=== PATIENT | female | born 1965 | race Caucasian/White ===

== ENCOUNTER 2016-11-05 16:18 | Inpatient (IN) ==
[2016-11-05 17:06] LABS: MANUAL DIFF NEEDED? NO
[2016-11-05 17:09] LABS: BASO% 0.4 % (0.0-0.8); EOS# 0.11 X1000 (0.0-0.7); EOS% 0.6 % (0.0-10.0); HEMATOCRIT 45.3 % (37.0-47.0); HEMOGLOBIN 16.4 g/dL (12.0-16.0); IMM GRAN# 0.06 X1000 (0.0-0.04); IMM GRAN% 0.3 % (0.0-0.5); LYMPH# 2.05 X1000 (1.2-3.4); LYMPH% 11.8 % (20.5-51.1); MCH 34.8 PG (27-31); MCHC 36.2 g/dL (33-37); MCV 96.2 FL (81-99); MONO# 1.14 X1000 (0.11-0.59); MONO% 6.6 % (1.7-9.3); MPV 9.8 FL (7.4-10.4); NEUT% 80.3 % (42.2-75.2); PLT 295 X1000 (130-400); RBC 4.71 XMIL (4.2-5.4)
[2016-11-05 17:10] LABS: URINE CULTURE NEEDED? NO; URINE MICRO REVIEW NEEDED? NO; URINE SOURCE CLEAN CATCH
[2016-11-05 17:12] LABS: BILIRUBIN URINE NEGATIVE (NEGATIVE); BLOOD URINE MODERATE (NEGATIVE); COLOR YELLOW; GLUCOSE URINE NEGATIVE (NEGATIVE); LEUKOCYTES URINE NEGATIVE (NEGATIVE); NITRITE URINE NEGATIVE (NEGATIVE); PH URINE 6.5; PROTEIN URINE 50 mg/dL (NEGATIVE); SP GRAVITY URINE 1.019; TURBIDITY URINE HAZY (CLEAR); UR EPITHELIAL CELLS >10 /HPF (<10); URINE BACTERIA NEGATIVE /HPF; URINE WBC <10 /HPF (<10); UROBILINOGEN URINE 2 mg/dL (NORMAL)
[2016-11-05 17:46] LABS: CK PROFILE 9445 U/L (24-173)
[2016-11-05 17:51] LABS: AGAP 10; ALBUMIN 3.7 g/dL (3.5-5.0); ALKALINE PHOSPHATASE 51 U/L (32-104); BUN 16 mg/dL (8-22); CALCIUM 8.9 mg/dL (8.8-10.2); CHLORIDE 77 mmol/L (98-107); COSMO 279; GOT 262 U/L (10-30); GPT 103 U/L (10-36); LDH 584 U/L (135-214); RA TEST 12 IU/mL (0-14); SODIUM 137 mmol/L (136-145); TCO2 50 mmol/L (25-35); TOTAL BILIRUBIN 0.75 mg/dL (0.20-1.00); TOTAL PROTEIN 6.3 g/dL (6.3-8.3)
[2016-11-05 17:54] LABS: POTASSIUM 1.4 mmol/L (3.5-5.1)
--- NOTE | 2016-11-05 17:58 | Diag Imaging Result Doc PS360 ---
EXAM: CHEST-2 VIEWS - 11/05/2016 HISTORY: chest pain TECHNIQUE: Chest two views COMPARISON: None. FINDINGS: Heart size is normal. 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 There is no consolidation, vascular congestion, pleural effusion, or pneumothorax identified. IMPRESSION: No evidence of acute disease. Electronically signed by Moe Del Valle 11/05/2016 5:56 PM
[2016-11-05] MEDS ORDERED: NS + KCL 40 MEQ 1,000 ML IV SCH ×2 (18:00→19:39)
[2016-11-05] MEDS ORDERED: POTASSIUM CHLORIDE 20% LIQUID PO ONE (18:00)
--- NOTE | 2016-11-05 18:04 | PROVIDER DOCUMENTATION ---
This chart was entered by Magalie Guo Scribe, acting as scribe for Deacon Lawson MD. HPI-Musculoskeletal Pain/Inj <Guillaume Sexton - Last Filed: 11/05/16 18:16> - GENERAL Source: patient - HX OF PRESENT ILLNESS-MUSKULOSKELTAL Quality of Pain: reports: cramping Severity in ED: mild Onset/Duration: other (two weeks) Timing: still present Modifying Factors: improves with: nothing Any recent injury?: No Locality of Occurance: Home Similar Symptoms Previously?: Yes Recently seen or treated by another doctor?: Yes - FALL INJURY Pain Radiation: reports: shoulder(s) Symptoms prior to fall:: reports: none <Deacon Lawson - Last Filed: 11/05/16 22:07> - GENERAL Chief Complaint: Abnormal Lab[s] Stated Complaint: ABNORMAL LAB Time Seen by Provider: 11/05/16 16:32 - HX OF PRESENT ILLNESS-MUSKULOSKELTAL Nature of Presenting Problem: Pt is a 51 year old female who came to the ED with a cc of muscular pain in both of her shoulders for two weeks. Pt was recently seen initially at [facility] and was referred to [facility]. She had no workup there. She went to [facility] last and had labs drawn. She was called today with markedly elevated CK level. They sent her to the ED because of her markedly elevated CK levels. She has no history of trauma. She has no repetative motion injury. She does not exercise. (Magalie Guo) Pt is a 51 year old female who came to the ED with a cc of muscular pain in both of her shoulders for two weeks. Pt was recently seen initially at [facility] and was referred to [facility]. She had no workup there. She went to [facility] last and had labs drawn. She was called today with markedly elevated CK level. They sent her to the ED because of her markedly elevated CK levels. She has no history of trauma. She has no repetative motion injury. She does not exercise. (Deacon Lawson) Review of Systems - Adult - REVIEW OF SYSTEMS - ADULT Constitutional: denies: fever <Guillaume Sexton - Last Filed: 11/05/16 18:16> - REVIEW OF SYSTEMS - ADULT Constitutional: denies: chills, fever Eyes: reports: no symptoms reported Ears, Nose, Mouth & Throat: denies: ear pain, loose teeth Cardiovascular: reports: no symptoms reported Respiratory: denies: cough, shortness of breath Gastrointestinal: denies: diarrhea, nausea, vomiting Genitourinary: reports: no symptoms reported Musculoskeletal: reports: muscle aches. denies: joint pain, neck pain Integumentary: reports: no symptoms reported Neurological: reports: no symptoms reported Psychiatric: reports: no symptoms reported Endocrine: reports: no symptoms reported Hematologic/Lymphatic: reports: no symptoms reported Allergic/Immunologic: reports: no symptoms reported All Other Systems: Reviewed and Negative <Deacon Lawson - Last Filed: 11/05/16 22:07> Past History - Adult - PAST MEDICAL HISTORY-ADULT Review of Records: reports: Old Records Reviewed, Nursing Assessment Review, Medications Reviewed, Social history reviewed & non-contributory. <Guillaume Sexton - Last Filed: 11/05/16 18:16> - PAST MEDICAL HISTORY-ADULT Review of Records: reports: Old Records Reviewed, Nursing Assessment Review Major Childhood Illnesses: reports: denies history Cardiovascular: reports: HTN Respiratory: reports: denies history Gastrointestinal: reports: denies history Obstetrical/Gynecological: reports: denies history Genitourinary: reports: denies history Musculoskeletal: reports: denies history Neurological: reports: denies history Endocrine/Immune: reports: denies history Other Conditions: reports: denies history - PRIOR SURGERIES/PROCEDURES Surgical/Procedure History: reports: appendectomy, cholecystectomy - IMMUNIZATION STATUS Childhood Immunizations: See Nurse Assessment Flu Vaccine: See Nurse Assessment - FAMILY HISTORY Family History: reviewed, not pertinent <Deacon Lawson - Last Filed: 11/05/16 22:07> Physical Exam-Injury Related - Physical Exam-Injury Related Initial Vital Signs Reviewed: Yes General Appearance: appears well, alert <Guillaume Sexton - Last Filed: 11/05/16 18:16> - Physical Exam-Injury Related Initial Vital Signs Reviewed: Yes General Appearance: appears well, alert, no apparent distress Eyes: PERRL/EOMI, pink conjunctivae Head, Ears, Nose, Mouth & Throat: normocephalic/atraumatic, moist mucous membranes Neck: non-tender, full range of motion, supple Respiratory: chest non-tender, lungs clear, normal breath sounds Cardiovascular: normal peripheral pulses, regular rate, rhythm Abdominal Exam: normal bowel sounds, non tender, soft Back Exam: normal inspection, no CVA tenderness Extremity: normal range of motion, non-tender, other (Had difficulty moving from lying to sitting position and using proximal muscles in arms) Integumentary: warm/dry Neurologic: grossly normal Psych/Mental Status: normal mood/affect, normal thought content, normal thought process, oriented x 3 - Glascow Coma Score Best Eye Response (Anthony): (4) open spontaneously Best Verbal Response (Liberal): (5) oriented Best Motor Response (Anthony): (6) obeys commands Liberal Total: 15 <Deacon Lawson - Last Filed: 11/05/16 22:07> Progress - PLAN OF CARE/RESULTS Result Diagrams: 11/05/16 16:55 11/05/16 16:55 - EKG 1 EKG Interpretation (*Must complete 3 of following elements*): Abnormal Rate: 100 Rhythm: sinus [place]: right QRS: normal SC Interval: normal ST Wave: non-specific ST changes Prior EKG Comparison: no prior EKG <Guillaume Sexton - Last Filed: 11/05/16 18:16> - PLAN OF CARE/RESULTS Result Diagrams: 11/05/16 16:55 11/05/16 16:55 - CHANGE OF SHIFT REPORT (ED Provider) Report Given and Care Transferred to:: Dr. Urrutia Time of Transfer: 17:56 Items Pending: Other <Deacon Lawson - Last Filed: 11/05/16 22:07> Departure - Departure Date of Disposition Decision: 11/05/16 Time of Disposition Decision: 18:19 Certified Medical Emergency: Emergent - Critical Care Note This patient required my direct & personal management of CC.: No <Guillaume Sexton - Last Filed: 11/05/16 18:16> - Departure Certified Medical Emergency: Emergent - Critical Care Note This patient required my direct & personal management of CC.: No <Deacon Lawson - Last Filed: 11/05/16 22:07> - Departure DIAGNOSIS: Hypokalemia, Myopathy DIAGNOSIS: (Ruled Out): Hyperkalemic periodic paralysis Disposition: ADMITTED INPATIENT 09 Condition: Fair Attestation - Physician/ ANDRIA Attestation Patient care was provided by Advanced Practice Provider:: No The physician spent face to face time with patient:: Yes Advanced Practice Provider documentation review:: Supervising physician onsite and consulted in the evaluation and care of this patient. The physician did have a face to face encounter with the patient. <Guillaume Sexton - Last Filed: 11/05/16 18:16> This chart was documented by the indicated scribe, (Magalie Guo Scribe) and accurately reflects the services I performed and decisions made by me, Deacon Lawson MD, as attested by the provider's signature.
[2016-11-05 18:09] LABS: CK INDEX 0.4 (0.0-2.5)
[2016-11-05 18:14] LABS: SED RATE 13 mm/hr (0-20)
[2016-11-05] MEDS ORDERED: KLOR-CON PO ONE (19:38)
[2016-11-05] MEDS ORDERED: ZOFRAN IV PRN (20:07)
[2016-11-05] MEDS ORDERED: TYLENOL PO PRN (20:07)
[2016-11-05] MEDS ORDERED: DUONEB (A & A) INH PRN (20:18)
[2016-11-05] MEDS: NICODERM PATCH TD PRN (20:55)
[2016-11-05] MEDS: ULTRAM PO PRN (20:56)
--- NOTE | 2016-11-05 21:13 | HISTORY AND PHYSICAL ---
HISTORY OF PRESENT ILLNESS: This is a 51-year-old female with hypertension. Her complaints are weakness and muscle pain. Probably about 2 weeks ago she started having weakness and pain mostly in her left arm but in both shoulders. She was seen at [facility] and then she was sent to [place] and according to this anyway and I think they gave her some nonsteroidals maybe some steroids. I do not think any labs were checked at that time. I do not think she looked critical apparently and they thought maybe she just had a muscle strain kind of process. She did not improve and then last which was about 2 days ago she went to [facility]. She did have labs drawn at that time with multiple abnormalities, CPK 80 level I think was over 11,000 and I think potassium level was also low and they sent her to the ER here to be evaluated and admitted. Her workup in the ER here showed rhabdomyolysis severe, critical hypokalemia of 1.4, elevated liver enzymes, leukocytosis. Patient's only history is hypertension. She has been intermittently using lisinopril and hydrochlorothiazide up until the last several weeks she has been taking that more regularly. She has been on the medication for a long time but has not been compliant until the last month or so. I think she had also been placed on Medrol Dosepak, Mobic and Flexeril. Patient admitted for rhabdomyolysis and critical hypokalemia. PAST MEDICAL HISTORY: Hypertension. PAST SURGICAL HISTORY: 1. Cholecystectomy. 2. Appendectomy. 3. Tubal. SOCIAL HISTORY: She smokes half a pack a day. She has done that for about 25 years. ALLERGIES: No known drug allergies. FAMILY HISTORY: Mother had cholangiocarcinoma is . Father had alpha 1 antitrypsin deficiency and of cirrhosis. She has been tested and had does not have the disease that she is aware of her and her sister. ALLERGIES: No known drug allergies. MEDICATIONS: Really her most systematic medication is lisinopril/hydrochlorothiazide 10/12.5 which is a very low-dose, Flexeril, Mobic and Medrol which are the newer medications. REVIEW OF SYSTEMS: She denies weight loss. She does admit to weight gain. She has not had any muscle cramping issues in the past but severe muscle cramping mostly in her upper and lower proximal musculature. She denies chest pain, shortness of breath. No nausea, vomiting, diarrhea. No dysuria, no polyuria, no dehydration risk factors, no hematochezia, no melena. Otherwise all other systems negative and reviewed. PHYSICAL EXAMINATION: VITAL SIGNS: Blood pressure is 142/69, heart rate of 96, saturations of 92%, 98.8 GENERALLY: She is well developed, no acute distress. HEAD: Normocephalic, atraumatic. EYES: Pupils equal, round, reactive to light. Her sclerae are injected. NECK: Supple. CARDIOVASCULAR: Regular rate and rhythm. PULMONARY: Bilateral breath sounds. Clear to auscultation. GI: Soft, nontender, nondistended. Bowel sounds are positive. EXTREMITIES: No clubbing or cyanosis. LYMPHATICS: No peripheral edema. NEUROLOGICAL: Nonfocal. I could not elicit great wrist reflexes in her upper extremities or lower extremities. Her strength is about at least a 3/5 in her lower extremities. She can move against gravity but not much resistance. Upper extremities a little bit stronger. SKIN: She is plethoric. She has dilated vascular ectasias in her cheeks and in her upper. She tends to stay out of the sun though. LABORATORY DATA: White count 17, hemoglobin and hematocrit 16, 45, platelets of 295,000. Chemistries potassium 1.4, bicarb 50, AST and ALT of 262 and 103, LDH 584, CPK 9445. Urine was really unremarkable. There was some red blood cells but I am not sure if that may be reactive to the myoglobinuria I am sure going on with her rhabdomyolysis. ASSESSMENT: This is a 51-year-old female who presents with critical hypokalemia, rhabdomyolysis and transaminitis. Differential is broad. This could be simply hydrochlorothiazide diuretic effect, this could be medication effect directly from rhabdomyolysis, this could be additionally could be a polymyositis or dermatomyositis diagnosis or other rheumatological issues such as systemic lupus erythematosus. In any case 1. Rhabdomyolysis. We will continue vigorous hydration. This is 1 instance I think bicarbonate will be not helpful because she is just still hypokalemic I would be reluctant to continue that so we will just hydrate and follow. We can consider bicarbonate when her potassium stabilizes. Follow her CPK levels, follow her renal function and monitor. I am not going to bolus her with fluid at this point. Her kidney function intact because I do not want to dilute her blood and her hypokalemia any further at this point. 2. Hypokalemia. We will supplement and follow aggressively. She has been given oral and IV potassium and she has continuous infusion of potassium going on at this point. There is no sign of arrhythmia, I believe her weakness and other things are related to that I think this is a direct effect of hydrochlorothiazide, I am thinking through the process that she has been taking her diuretic more effectively she caused significant hypokalemia which induced rhabdomyolysis, she was placed on steroids which I think worsened her rhabdomyolysis and has caused the weakness and hypokalemia and myositis. Additionally we will need to rule out myositis. Dr. Lawson had already ordered an aldolase level, we will check a sedimentation rate and CRP and follow. 3. History of alpha 1 antitrypsin. We will screen her levels and monitor. 4. Leukocytosis I think may be reactive. There is no clear source of infection. Urine is clear. Chest x-ray is clear. We will continue to monitor. I anticipate that will improve. I have not started antibiotics and holding off at this point. She is being screened for autoimmune issues such as lupus with BRITTANY, ANCA has been sent and again the aldolase has been sent as well. DISPOSITION: Pending clinical resolution I think she will probably be here at least 2 days pending her potassium levels. This is a service admission. cc: Jus Savage MD
[2016-11-05] MEDS: POTASSIUM CHLORIDE 20 MEQ/SWI 20 MEQ/100 ML IVPB IV SCH ×2 (21:15→23:11)
[2016-11-06] MEDS ORDERED: KLOR-CON PO ONE ×3 (02:22→17:09)
[2016-11-06] MEDS: POTASSIUM CHLORIDE 20 MEQ/SWI 20 MEQ/100 ML IVPB IV SCH ×5 (02:41→23:08)
[2016-11-06 05:26] LABS: HEMATOCRIT 40.4 % (37.0-47.0); HEMOGLOBIN 14.6 g/dL (12.0-16.0); MCH 35.6 PG (27-31); MCHC 36.1 g/dL (33-37); MCV 98.5 FL (81-99); MPV 10.2 FL (7.4-10.4); RBC 4.1 XMIL (4.2-5.4)
[2016-11-06 06:29] LABS: AGAP 9; ALBUMIN 3.3 g/dL (3.5-5.0); ALKALINE PHOSPHATASE 48 U/L (32-104); BUN 13 mg/dL (8-22); CALCIUM 8.4 mg/dL (8.8-10.2); CHLORIDE 86 mmol/L (98-107); COSMO 285; GOT 194 U/L (10-30); GPT 84 U/L (10-36); SODIUM 143 mmol/L (136-145); TCO2 48 mmol/L (25-35); TOTAL BILIRUBIN 0.46 mg/dL (0.20-1.00); TOTAL PROTEIN 5.7 g/dL (6.3-8.3)
[2016-11-06] MEDS: ULTRAM PO PRN ×2 (08:42→17:32)
[2016-11-06] MEDS: KLOR-CON PO SCH ×2 (13:31→16:51)
--- NOTE | 2016-11-06 16:39 | Diag Imaging Result Doc PS360 ---
EXAM: ABDOMEN/PELVIS W/PO AND IV CON - 11/06/2016 HISTORY: severe hypokalemia, alkalosis TECHNIQUE: With oral and intravenous contrast. Dose reduction protocol. COMPARISON: None. FINDINGS: There is some dependent atelectasis at the visualized lung bases. 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 There are no other substantial analysis of the liver, spleen, adrenal glands, or pancreas identified. The gallbladder surgically absent. The bilateral kidneys enhance homogeneously. There is no hydronephrosis. There are nonspecific small retroperitoneal lymph nodes. There are no substantial enlarged lymph nodes identified. There are atherosclerotic calcifications noted. There is no evidence of bowel obstruction. The appendix by history is surgically absent. There is no substantial bowel wall thickening identified. The sigmoid colon is noted to be elongated. There is no free air, free fluid, or abscess identified. Images of pelvis show a 2.4 cm left ovarian cyst. There is no other abnormal pelvic mass or fluid collection identified. The uterus is noted to tilt towards the right which is likely long-standing. IMPRESSION: 2.4 cm left ovarian cyst. No other visible acute process in the abdomen or pelvis. Electronically signed by Moe Del Valle 11/06/2016 4:36 PM
--- NOTE | 2016-11-06 17:40 | PROGRESS NOTE ---
DATE: 11/06/2016 SUBJECTIVE: The patient has no focal complaints. Still weak, still having muscle cramping. OBJECTIVE: Vital signs: Blood pressure 142/76, heart rate of 82, respiratory 16, temperature 96.6 degrees, 97% on room air. Cardiovascular: Regular rate and rhythm. Pulmonary: Bilateral breath sounds. Clear to auscultation. GI: Soft, nontender, nondistended. Bowel sounds are positive. LABORATORY DATA: White count 10, hemoglobin and hematocrit 14 and 40, platelets 249,000. Potassium still very low 1.9, carbon dioxide 48, AST and ALT 194 and 84, creatine kinase 7583, TSH 5.7, free T4 is normal. PROBLEM LIST: 1. Severe critical hypokalemia. We are still aggressively supplementing. She got a little bit better and then has come back down so we are still expressively try to get her numbers up. Again I feel she is just total body depleted potassium I think related to the hydrochlorothiazide affect and her level was actually probably lower and is less I think from what I understand laboratory testing potassium level below level 2 is actually much lower than it may actually be much slower than is represented by the lab value. I have gone ahead and consulted Dr. Chu to evaluate the patient as well and see about other recommendations. He also is concerned about hyperreninism or hyperadrenalism so we will continue to follow. 2. Rhabdomyolysis. Will continue hydration. CPK level was coming down. Again this is secondary to profound hypokalemia. I do not believe she has myositis, her sedimentation rate is normal. Labs are pending but this can be seen with severe hypokalemia and is an ischemic event. 3. History of alpha 1 antitrypsin. Appears to be stable. Level is pending. 4. Leukocytosis. This has resolved with hydration and no antibiotics, we are just going to follow that. 5. Hypertension. Will continue to monitor. Appears to be overall stable. 6. Alkalosis which is felt to be a contraction alkalosis likely related to her diuretic effect. We will continue to monitor. DISPOSITION: Pending clinical course. Obviously until her levels stabilize above 2.5 or 3 she has to be monitored in a critical care setting. cc: Jus Savage MD
[2016-11-06] MEDS ORDERED: RESTORIL PO PRN (19:30)
[2016-11-06] MEDS: NICODERM PATCH TD PRN (20:10)
[2016-11-07] MEDS: POTASSIUM CHLORIDE 20 MEQ/SWI 20 MEQ/100 ML IVPB IV SCH (01:18)
[2016-11-07 05:17] LABS: HEMATOCRIT 41.6 % (37.0-47.0); HEMOGLOBIN 14.4 g/dL (12.0-16.0); MCH 34.5 PG (27-31); MCHC 34.6 g/dL (33-37); MCV 99.8 FL (81-99); MPV 10.1 FL (7.4-10.4); RBC 4.17 XMIL (4.2-5.4)
[2016-11-07 05:54] LABS: AGAP 8; BUN 8 mg/dL (8-22); CALCIUM 8.4 mg/dL (8.8-10.2); CHLORIDE 91 mmol/L (98-107); COSMO 279; POTASSIUM 3.2 mmol/L (3.5-5.1); SODIUM 140 mmol/L (136-145); TCO2 41 mmol/L (25-35)
--- NOTE | 2016-11-07 07:27 | EKG Report ---
Test Performed on : 11/05/2016 6:09:48 PM Test Reason : NO ORDER Blood Pressure : / mmHG Vent. Rate : 100 BPM Atrial Rate : 100 BPM P-R Int : 138 ms QRS Dur : 088 ms QT Int : 398 ms P-R-T Axes : 032 091 030 degrees QTc Int : 513 ms Normal sinus rhythm. Rightward axis ST \T\ T wave abnormality, consider anterior ischemia Abnormal ECG No previous ECGs available Unconfirmed Result
[2016-11-07] MEDS: KLOR-CON PO SCH ×2 (08:15→12:14)
[2016-11-07 09:08] LABS: HEPATITIS PROFILE ACUTE SEE COMMENTS
[2016-11-07] MEDS ORDERED: NORVASC PO SCH (09:15)
[2016-11-07] MEDS: ULTRAM PO PRN (09:34)
--- NOTE | 2016-11-07 09:40 | CONSULTATION ---
DATE OF CONSULTATION: 11/07/2016 REASON FOR CONSULT: Hypokalemia. CONSULTING PHYSICIAN: Dr. Savage. HISTORY OF PRESENT ILLNESS: Ms. Baker is a 51-year-old, white female who has a history of hypertension, is known to take lisinopril/hydrochlorothiazide combination medication for several years. Patient states that she has not been compliant in taking her medication and does not have a primary care physician. She states that she had just recently started taking this medicationas directed, and as of a week ago developed left shoulder pain that started going into the left chest along with weakness and muscle pain. This was mostly in her shoulder. Subsequently she stated that she went to [place] outpatient clinic and was subsequently sent to [facility] after she had not been feeling any better. She states that at that time she was given nonsteroidals and a steroid Dosepak. Again, she stated that she was not feeling very well adn her symptoms continued to worsen. She went to [facility] last . She had labs drawn and was sent home. She was called back on Monday at which time she was told to come pickle pumper her abnormal labs with the CPK greater than 11,000 and a potassium that was very low. She was sent to [facility] and was evaluated for workup indicating rhabdomyolysis with critical hypokalemia of 1.4. At that time she had elevated liver enzymes and leukocytosis. Subsequently, she has had multiple doses of IV replacement potassium and p.o. replacement potassium and her potassium is now at 3.2. She is currently ordered at 40 mEq t.i.d. Patient states that she is feeling much better. She does occasionally have some muscle weakness but she has been getting up and down and going to the bathroom on her own. She denies any recent nausea, vomiting, no diarrhea. No fever, n o chills. No recent exposure to heat exhaustion. No diet changes. PAST MEDICAL HISTORY: Known for hypertension. PAST SURGICAL HISTORY: 1. Cholecystectomy. 2. Appendectomy. 3. Tubal ligation. SOCIAL HISTORY: Patient smokes 1/2 pack per day. She drinks on occasion at which she states she has done that for 25 years. She denies any illicit drug use. FAMILY HISTORY: Mother had cholangiocarcinoma and is . Father has alpha 1 at antitrypsin deficiency and decreased secondary to cirrhosis. She states that she has been tested and does not have this disease. Her sister is at her bedside and is also aware. CURRENT ALLERGIES: No known drug allergies. HOME MEDICATIONS: 1. Lisinopril with hydrochlorothiazide 01/12.5 2. Flexeril. 3. Mobic. 4. Medrol Dosepak. REVIEW OF SYSTEMS: Times 10 with pertinent positives listed above in the HPI. VITAL SIGNS: Temperature 97.7 degrees, blood pressure 167/88, heart rate 87, respirations 16. She is on room air. Last recorded saturation 93%. She has had 1340 in she has had 2550 out per void. LABS: Sodium 140, potassium 3.2, chloride 91, CO2 41. BUN 8, creatinine 0.6, glucose 129. Anion gap 8. Calcium 8.4, albumin 3.3, magnesium of 2.1. Her white count 9.26, hemoglobin 14.4, hematocrit 41.6 with a platelet count of 234,000. Her CPK is now down to 7583, her last TSH is 5.77 with a free T4 of 1.47. Cortisol level of 3.3. Patient has a renin adrenocorticotrophic hormone and aldosterone level still pending. We are still waiting for the results of an alpha 1 antitrypsin, and an BRITTANY and ANCA report. These are all still pending. Patient had a CT of the abdomen and pelvis that indicated no acute disease. PHYSICAL EXAMINATION: General: This is a 51-year-old, white female. She is lying in bed. She is in no acute distress. Skin: Warm and dry. HEENT: Normocephalic, atraumatic. Conjunctiva is pink. She has SUSAN. Mucous membranes are moist. Neck: Supple. Trachea midline. No JVD. Cardiovascular: Regular rate and rhythm. She is without murmur or gallop. Lungs: Clear to auscultation anteriorly. Equal excursion. She is on room air. Abdomen: Round , soft, nontender. Positive bowel sounds. Genitourinary: Not inspected. Patient is voiding adequate amount. Extremities: Have no edema. No clubbing or cyanosis. Neurological: Patient still has weakness when reaching for our card with some residual pain with movement; otherwise, no deficits noted. ASSESSMENT AND PLAN: 1. Hypokalemia. Patient has had aggressive potassium replacement therapy. Potassium is now up to 3.2. She has been monitored for arrhythmia and these have not been noted. We have labs that are currently pending. Her CT of the abdomen and pelvis indicated no adrenal tumor. She is currently receiving a potassium supplement 40 mEq t.i.d. We have discussed with the patient that at this time it is okay from kidney standpoint to go home. She can resume her lisinopril which we think is appropriate seeing that it does not drop her potassium but could possibly elevate it. Continue with potassium supplements. Follow up in our office on with labs. 2. Acute rhabdomyolysis. Patient had vigorous hydration. She was not treated with sodium bicarbonate due to hypokalemia. This continues to improve. She still continues with muscle weakness and soreness followed by the primary care team. 3. Leukocytosis, no noted infection. Again, autoimmune issues are still pending. 4. Electrolytes as mentioned. Potassium has improved to 3.2. 5. Acid-base balance, this is stable. 6. Anemia. This is at target. I would to thank you for allowing us to follow with this patient. Patient seen, data reviewed, discussed with Allyson Flores on 11/07/16. I agree with the above assessment and plan of care. rg Dictated by TRISTON Anand for Avni Chu MD cc: TRISTON Anand MD [facility]NER[facility]ax
[2016-11-07 15:26] VITALS: BP 179/93
--- NOTE | 2016-11-19 11:05 | DISCHARGE SUMMARY ---
ADMISSION DATE: 11/05/2016 DISCHARGE DATE: 11/07/2016 FINAL DISCHARGE DIAGNOSES: 1. Severe hypokalemia. 2. Rhabdomyolysis. 3. Leukocytosis. 4. Hypertension. 5. Obesity. 6. Contraction alkalosis. CONSULTATIONS REQUESTED DURING THIS HOSPITAL STAY: Nephrology consultation with Dr. Chu. HOSPITAL COURSE: Ms. Baker is a 51-year-old female with a history of multiple medical problems who presented to the ER with severe muscle cramps. On admission, the patient was noted to have a potassium of 1.4, CO2 of 50, chloride of 77, and CK 9445. The patient admitted that she had just recently restarted taking hydrochlorothiazide medication that she had been prescribed but was not taking on a regular basis. The patient was admitted to the hospitalist service. Nephrology was consulted. The patient was started on scheduled potassium replacement and was started on aggressive IV fluid hydration. The patient's rhabdomyolysis was thought to be secondary to the profound hypokalemia she presented with. With IV fluid hydration the patient's CPK level continued to improve and also the patient's potassium improved with replacement therapy. The patient's muscle cramps also resolved. The patient continued to improve clinically and was cleared for discharge on 11/07/2016. DISCHARGE MEDICATIONS: 1. Lisinopril 10 mg p.o. daily. 2. Norvasc 5 mg p.o. daily. 3. Micro-K 8 mEq oral daily. 4. Mobic 15 mg p.o. daily. 5. Flexeril 10 mg 3 times a day p.r.n. for muscle spasms. DISCHARGE DIET: Low sodium diet. ACTIVITY: As tolerated. FOLLOWUP INSTRUCTIONS: The patient will need to follow up with Dr. Chu as scheduled by his clinic. cc: Bebe Snider MD
== END 2016-11-07 15:53 | disposition home or self-care (01) ==
LOC: ED 16:18 → SUATTDRO 16:19 → 3S 16:19
PROVIDERS: ATTEND Internal Medicine